=== PATIENT | male | born 1975 | race Hispanic/Latino ===

== ENCOUNTER 2016-10-04 20:53 | Emergency (ER) | payer OTHER ==
[2016-10-04 20:53] VITALS: BMI 30.7
[2016-10-04] MEDS ORDERED: Alum-Mag Hydrox-Simethicone Susp (30 mL) PO STA (21:23)
--- NOTE | 2016-10-04 21:25 | C.PDOC ---
History Of Present Illness A 41 y/o male c/o epigastric burning sensation that radiated to the chest that is consistent with GERD symptoms for 2 hrs [employer]. Pt has a Hx of anxiety disorder and takes Klonopin for it. Pt denies fever, chills, nausea, vomiting, diarrhea, or any other complaints. Time Seen by Provider: 10/04/16 21:18 Chief Complaint (Nursing): Cough, Cold, Congestion History Per: Patient History/Exam Limitations: no limitations Onset/Duration Of Symptoms: Hrs Current Symptoms Are (Timing): Still Present Severity: Mild Recent travel outside of the [place]: No Additional History Per: Patient Past Medical History Reviewed: Historical Data, Nursing Documentation, Vital Signs Vital Signs: Last Vital Signs Temp 98.3 F 10/04/16 21:47 Pulse 80 10/04/16 21:47 Resp 16 10/04/16 21:47 BP 111/61 10/04/16 21:47 Pulse Ox 97 10/04/16 21:47 - Medical History PMH: Anxiety, Diabetes, HTN Family History: States: Unknown Family Hx - Social History Hx Tobacco Use: No Hx Alcohol Use: No Hx Substance Use: No - Immunization History Hx Tetanus Toxoid Vaccination: No Hx Influenza Vaccination: Yes Hx Pneumococcal Vaccination: No Review Of Systems Except As Marked, All Systems Reviewed And Found Negative. Constitutional: Negative for: Fever, Chills Cardiovascular: Positive for: Chest Pain Gastrointestinal: Positive for: Abdominal Pain (Epigastric burning sensation). Negative for: Nausea, Vomiting, Diarrhea Physical Exam - Physical Exam Appears: Non-toxic, No Acute Distress, Other (Anxious) Skin: Warm, Dry Head: Atraumatic, Normacephalic Eye(s): bilateral: Normal Inspection Chest: Symmetrical Cardiovascular: Rhythm Regular, No Murmur Respiratory: Normal Breath Sounds, No Accessory Muscle Use, No Rales, No Rhonchi , No Wheezing Gastrointestinal/Abdominal: Soft, No Tenderness Neurological/Psych: Oriented x3, Normal Speech, Other (No focal deficit) Gait: Steady ED Course And Treatment ECG: Interpreted By Me ECG Rhythm: Sinus Rhythm ECG Interpretation: Normal Rate From EC O2 Sat by Pulse Oximetry: 98 (RA) Pulse Ox Interpretation: Normal Medical Decision Making Medical Decision Making: Impression: 41 y/o c/o epigastric burning sensation that radiates to the back for 2 hrs typical GERD symptoms and anxiety took own Klonopin in ED Abdulkadiralox PRN educated. Continue protonix QHS Disposition Doctor Will See Patient In The: Office Counseled Patient/Family Regarding: Studies Performed, Diagnosis - Disposition Referrals: Butch Keating MD [Staff Provider] - Disposition: HOME/ ROUTINE Disposition Time: 21:25 Condition: GOOD Additional Instructions: continue Protonix @ night. Maalox 4-5x/day as needed for GERD symptoms Continue diet hygiene and weight loss. Instructions: Gastroesophageal Reflux Disease (ED), Anxiety (ED) - Clinical Impression Clinical Impression: Anxiety, Chest discomfort - Scribe Statement The provider has reviewed the documentation as recorded by the Scribe Noemy howell All medical record entries made by the Scribe were at my direction and personally dictated by me. I have reviewed the chart and agree that the record accurately reflects my personal performance of the history, physical exam, medical decision making, and the department course for this patient. I have also personally directed, reviewed, and agree with the discharge instructions and disposition.
[2016-10-04] MEDS ORDERED: Aluminum Hydroxide/Magnesium Hydroxide Susp (30 mL) ONE (21:27)
[2016-10-04 21:48] VITALS: BP 111/61; PULSE 80; RESP 16; TEMP 98.3
[2016-10-05 01:09] VITALS: O2SAT 98
== END 2016-10-04 21:48 | disposition home or self-care (01) ==
LOC: C.ER 20:53
DX: R07.89 Other chest pain (principal); F41.9 Anxiety disorder, unspecified

== ENCOUNTER 2017-07-18 20:22 | Emergency (ER) | payer OTHER ==
[2017-07-18 20:22] VITALS: BMI 32.1
--- NOTE | 2017-07-18 21:08 | C.PDOC ---
History Of Present Illness Patient is a 42 y/o male who presents to the ED with a complaint of a headache for the last few days. Patient describes pain is a dull, aching, throbbing pain. Denies any fever, chills, weakness, visual changes, or compliancy with DM medication. No other physical complaints at this time. Time Seen by Provider: 07/18/17 21:08 Chief Complaint (Nursing): Headache History Per: Patient History/Exam Limitations: no limitations Onset/Duration Of Symptoms: Days (a few days) Current Symptoms Are (Timing): Still Present Severity: Moderate Pain Scale Rating Of: 4 Quality: Dull, Aching Associated Symptoms: denies: Extremity Weakness Recent travel outside of the [place]: No Past Medical History Reviewed: Historical Data, Nursing Documentation, Vital Signs Vital Signs: Last Vital Signs Temp 98.4 F 07/18/17 20:40 Pulse 70 07/18/17 21:43 Resp 14 07/18/17 21:43 BP 138/90 07/18/17 21:43 Pulse Ox 100 07/18/17 22:40 - Medical History PMH: Anxiety, Diabetes, GERD, HTN Surgical History: No Surg Hx Family History: States: No Known Family Hx - Social History Hx Tobacco Use: No Hx Alcohol Use: No Hx Substance Use: No - Immunization History Hx Tetanus Toxoid Vaccination: No Hx Influenza Vaccination: No Hx Pneumococcal Vaccination: No Review Of Systems Constitutional: Negative for: Fever, Chills Eyes: Negative for: Vision Change Neurological: Positive for: Headache. Negative for: Weakness Physical Exam - Physical Exam Appears: Well, No Acute Distress Skin: Warm, Dry Head: Normacephalic Eye(s): bilateral: Normal Inspection, PERRL, EOMI Oral Mucosa: Moist Chest: Symmetrical Cardiovascular: Rhythm Regular, No Murmur Respiratory: No Decreased Breath Sounds, No Rales, No Rhonchi, No Wheezing Neurological/Psych: Oriented x3, Normal Speech, Normal Cognition, Other (no focal deficits) Gait: Steady ED Course And Treatment - Laboratory Results Result Diagrams: 07/18/17 21:42 07/18/17 21:42 O2 Sat by Pulse Oximetry: 100 - CT Scan/US CT Head Other Rad Studies (CT/US): Interpreted By Me, Read By Radiologist CT/US Interpretation: EXAM: CT Head Without Intravenous Contrast. CLINICAL HISTORY: 42 years old, male; Pain; Headache; Headache not specified. TECHNIQUE : Axial computed tomography images of the head/brain without intravenous contrast. All CT scans at. this facility use one or more dose reduction techniques, viz.: automated exposure control; ma/kV. adjustment per patient size (including targeted exams where dose is matched to indication; i.e. head); . or iterative reconstruction technique. Coronal and sagittal reformatted images were created and reviewed. COMPARISON: No relevant prior studies available. FINDINGS: Brain: No intracranial hemorrhage. No mass. No definite edema. Ventricles: No hydrocephalus. Bones/joints: No acute fracture. Soft tissues: Unremarkable. Sinuses: Scattered [id number] mucosal thickening of ethmoid sinuses. Moderate mucosal. thickening of RIGHT sphenoid sinus. Scattered minimal to mild mucosal thickening of remaining. sinuses. Mastoid air cells: No mastoid effusion. Orbits: Unremarkable as visualized. IMPRESSION : 1. No definite acute intracranial abnormality. 2. Sinus disease. Thank you for allowing us to participate in the care of your patient. Progress Note: CT head and blood work ordered. Zofran and medrol administered. Medical Decision Making Medical Decision Making: Upon provider reevaluation patient is feeling better, is medically stable, and requires no further treatment in the ED at this time. Patient will be discharged home with Rx for bactrim, antivert, naproxen. Counseling was provided and all questions were answered regarding diagnosis and need for follow up with dr keating. There is agreement to discharge plan. Return if symptoms persist or worsen. Disposition Counseled Patient/Family Regarding: Studies Performed, Diagnosis, Need For Followup, Rx Given - Disposition Referrals: Butch Keating MD [Staff Provider] - Disposition: HOME/ ROUTINE Disposition Time: 21:08 Condition: FAIR Prescriptions: Meclizine [Antivert] 25 mg PO TID #20 tab Naproxen [Naprosyn] 1 tab PO BID PRN #25 tab PRN Reason: Pain Ondansetron ODT [Zofran ODT] 1 odt PO BID PRN #6 odt PRN Reason: Nausea/Vomiting Sulfamethoxazole/Trimethoprim [Bactrim DS 800 mg-160 mg] 1 tab PO BID #14 tab Instructions: Sinus Headache (DC), Sinusitis, Adult (DC) Forms: [employer]ma[employer] (Kinyarwanda) - Clinical Impression Clinical Impression: Headache, Sinusitis - Scribe Statement The provider has reviewed the documentation as recorded by the Scribe Francesca Cruz All medical record entries made by the Scribe were at my direction and personally dictated by me. I have reviewed the chart and agree that the record accurately reflects my personal performance of the history, physical exam, medical decision making, and the department course for this patient. I have also personally directed, reviewed, and agree with the discharge instructions and disposition.
[2017-07-18 21:45] VITALS: RESP 14
[2017-07-18 21:46] LABS: BASO % 0.7 % (0.0-2.0); EOS # 0.2 K/uL (0.0-0.7); EOS % 3.5 % (0.0-4.0); HEMOGLOBIN 15.2 g/dL (12.0-18.0); LYMPH # 2.1 K/uL (1.0-4.3); LYMPH % 34.4 % (20.0-40.0); MEAN CELL VOLUME 84.5 fL (80.0-94.0); MEAN CORPUSCULAR HEMOGLOBIN 28.9 pg (27.0-31.0); MEAN CORPUSCULAR HGB CONC 34.2 g/dL (33.0-37.0); MONO # 0.5 K/uL (0.0-0.8); MONO % 8.7 % (0.0-10.0); NEUT # 3.2 K/uL (1.8-7.0); NEUT % 52.7 % (50.0-75.0); RBC 5.25 Mil/uL (4.40-5.90); RED CELL DISTRIBUTION WIDTH 13.8 % (11.5-14.5); WHITE BLOOD COUNT 6.1 K/uL (4.8-10.8)
[2017-07-18 21:58] LABS: ALB/GLOB RATIO 1.3 (1.0-2.1); ALBUMIN 4.4 g/dL (3.5-5.0); ALT/SGPT 59 U/L (21-72); AST/SGOT 30 U/L (17-59); BLOOD UREA NITROGEN 14 mg/dL (9-20); CALCIUM 8.8 mg/dl (8.6-10.4); GFR AFRICAN-AMERICAN > 60; GFR NON-AFRICAN AMERICAN > 60
--- NOTE | 2017-07-18 22:34 | CT ---
EXAM: CT Head Without Intravenous Contrast CLINICAL HISTORY: 42 years old, male; Pain; Headache; Headache not specified TECHNIQUE: Axial computed tomography images of the head/brain without intravenous contrast. All CT scans at this facility use one or more dose reduction techniques, viz.: automated exposure control; ma/kV adjustment per patient size (including targeted exams where dose is matched to indication; i.e. head); or iterative reconstruction technique. Coronal and sagittal reformatted images were created and reviewed. COMPARISON: No relevant prior studies available. FINDINGS: Brain: No intracranial hemorrhage. No mass. No definite edema. Ventricles: No hydrocephalus. Bones/joints: No acute fracture. Soft tissues: Unremarkable. Sinuses: Scattered [id number] mucosal thickening of ethmoid sinuses. Moderate mucosal thickening of RIGHT sphenoid sinus. Scattered minimal to mild mucosal thickening of remaining sinuses. Mastoid air cells: No mastoid effusion. Orbits: Unremarkable as visualized. IMPRESSION: 1. No definite acute intracranial abnormality. 2. Sinus disease.
[2017-07-18 23:39] VITALS: BP 126/79; PULSE 76; TEMP 98.1; O2SAT 96
== END 2017-07-18 23:39 | disposition home or self-care (01) ==
LOC: C.ER 20:22
DX: J32.9 Chronic sinusitis, unspecified (principal); R51 Headache
CPT/HCPCS: 70450; 80053; 82948; 85025; 96374; 96375; 99285; J1885; J2405; J2930